=== PATIENT | male | born 1960 | race Hispanic/Latino ===

== ENCOUNTER 2020-06-12 10:19 | Emergency (ER) | payer SELFPAY ==
[~2020-06-12] VITALS: Ht 160 cm; Wt 77.0 kg
[~2020-06-12 10:19] MED LIST: NAPROXEN500 MG PO; VICODIN1 TAB PO
[2020-06-12 11:03] LABS: HEMOGLOBIN 14.3 g/dl (14.0-18.0); IMMATURE GRANULOCYTES 0.4 % (0.0-5.0); MEAN CELL VOLUME 91.5 fL CALC (80.0-100.0); MEAN CORPUSCULAR HGB 31.2 pG CALC (26.0-32.0); NEUT# 4.56 thou/uL (1.82-7.42); RED BLOOD COUNT 4.59 mill/uL (4.70-6.10); RED CELL DISTRI WIDTH 12.4 % (11.5-15.5)
[2020-06-12 11:13] LABS: URINE BILIRUBIN - DIPSTICK NEGATIVE (NEGATIVE); URINE BLOOD DIPSTICK LARGE (NEGATIVE); URINE GLUCOSE - DIPSTICK NEGATIVE (NEGATIVE); URINE KETONE TRACE mg/dL (NEGATIVE); URINE LEUK ESTERASE NEGATIVE (NEGATIVE); URINE PROTEIN - DIPSTICK >=300 mg/dL (NEG-TRACE); URINE SPECIFIC GRAVITY >=1.030
[2020-06-12 11:14] LABS: URINE COLOR BROWN; URINE NITRITE - DIPSTICK POSITIVE (Negative)
[2020-06-12 11:15] LABS: URINE BACTERIA RARE hpf; URINE RBC TNTC RBC/hpf (0-5)
[2020-06-12 11:23] LABS: ALBUMIN 4.4 g/dL (3.2-5.0); ALKALINE PHOSPHATASE 69 u/l (38-126); AMYLASE 55 u/l (30-110); ANION GAP 12 (6-22 (CALC)); BUN 17 mg/dL (8-23); BUN/CREATININE RATIO 26 (12-20 (CALC)); CARBON DIOXIDE 25 mmol/l (22-30); CHLORIDE 103 mmol/l (95-108); CREATININE 0.7 mg/dL (0.7-1.3); GFR > 60 ML/MIN (>=60 (CALC)); GFR FOR AFR.AMER. > 60 ML/MIN (>=60 (CALC)); LIPASE 55 u/l (23-300); POTASSIUM 4.4 mmol/l (3.5-5.1); SGOT/AST 81 u/l (19-48); SODIUM 135 mmol/l (137-146); TOTAL PROTEIN 7.9 g/dL (6.3-8.2)
[2020-06-12 11:24] LABS: BILIRUBIN, TOTAL 0.7 mg/dL (0.0-1.4)
[2020-06-12] MEDS ORDERED: HYDROCO/APAP1 TA9 PO (11:45)
[2020-06-12] MEDS ORDERED: TAMSULOSIN0.4 MG PO (11:45)
[2020-06-12] MEDS ORDERED: ZOFRAN4 MG/TAB PO (11:45)
[2020-06-12] MEDS ORDERED: CIPROFLOXACN500 MG PO (11:45)
[2020-06-12 12:01] VITALS: BP 120/75
== END 2020-06-12 12:11 | disposition home or self-care (01) | DRG 694 ==
LOC: ED 10:19
DX: N13.2 Hydronephrosis with renal and ureteral calculous obstruction (principal)